=== PATIENT | male | born 1980 | race Caucasian/White ===

== ENCOUNTER 2023-11-30 15:32 | Emergency (ER) | payer OTHER ==
[~2023-11-30] VITALS: Ht 177.8 cm; Wt 79.0 kg
[2023-11-30] MEDS ORDERED: ONDANSETRON 4MG 2ML VIAL IV ONE (15:40)
[2023-11-30] MEDS ORDERED: NS 1,000 ML IV ONE (15:40)
[2023-11-30 16:15] LABS: BASO # 0.1 10^3/uL (0.0-0.2); BASO % 0.7 % (0.0-1.0); EOS # 0.2 10^3/uL (0.0-0.5); EOS % 2.1 % (0.0-3.0); HEMATOCRIT 40.5 % (42.0-52.0); HEMOGLOBIN 14.1 g/dl (13.5-17.5); LYMPH # 3.1 10^3/uL (1.5-5.0); LYMPH % 34.8 % (24.0-44.0); MEAN CORPUSCULAR HEMOGLOBIN 29.7 pg (27.0-33.0); MEAN CORPUSCULAR HGB CONC 34.8 g/dl (32.0-36.5); MEAN CORPUSCULAR VOLUME 85.3 fl (80.0-96.0); MONO # 0.9 10^3/uL (0.0-0.8); MONO % 9.6 % (2.0-8.0); NEUTROPHILS # 4.7 10^3/uL (1.5-8.5); NEUTROPHILS % 52.6 % (36.0-66.0); PLATELET COUNT, AUTOMATED 230 10^3/uL (150-450); RED BLOOD COUNT 4.75 10^6/uL (4.30-6.10); WHITE BLOOD COUNT 8.9 10^3/uL (4.0-10.0)
[2023-11-30 16:46] LABS: LIPASE 43 U/L (12-53)
[2023-11-30 16:48] LABS: ALBUMIN 3.5 G/DL (3.2-5.2); ALKALINE PHOSPHATASE 98 U/L (46-116); ALT/SGPT 12 U/L (7.0-40); AST/SGOT 17 U/L (<34); BILIRUBIN,DIRECT 0.2 MG/DL (<0.4); BILIRUBIN,TOTAL 0.5 MG/DL (0.3-1.2); BLOOD UREA NITROGEN 8 MG/DL (9-23); CALCIUM LEVEL 8.9 MG/DL (8.5-10.1); CARBON DIOXIDE LEVEL 27 MMOL/L (20-31); CHLORIDE LEVEL 106 MMOL/L (98-107); CREATININE FOR GFR 0.58 MG/DL (0.70-1.30); GLOMERULAR FILTRATION RATE > 60.0 (>60); GLUCOSE, FASTING 102 MG/DL (60-100); POTASSIUM SERUM 3.9 MMOL/L (3.5-5.1); SODIUM LEVEL 137 MMOL/L (136-145); TOTAL PROTEIN 6.3 G/DL (5.7-8.2)
[2023-11-30] MEDS ORDERED: BUPRENORPHINE/NALOXONE 2-0.5MG SUBLINGUAL TABLET(SUBOXONE) SL STA (16:57)
[2023-11-30 18:00] VITALS: BP 119/56
[2023-11-30 18:02] VITALS: O2SAT 96
[2023-11-30 18:28] VITALS: TEMP 97.8
== END 2023-11-30 18:32 | disposition home or self-care (01) ==
LOC: EDBD 15:32 → M ED 15:32
DX: F11.23 Opioid dependence with withdrawal (principal); R11.2 Nausea with vomiting, unspecified; R19.7 Diarrhea, unspecified; F32.9 Major depressive disorder, single episode, unspecified; F41.9 Anxiety disorder, unspecified; Z88.8 Allergy status to other drugs, medicaments and biological substances
CPT/HCPCS: 80048; 80076; 83690; 85025; 93005; 93041; 96361; 96374; 99285; J2405

== ENCOUNTER → 2023-12-04 | Outpatient (CLI) | payer OTHER ==
[2023-12-04 14:16] LABS: BASO % 0.5 % (0.0-1.0); EOS # 0.2 10^3/uL (0.0-0.5); EOS % 2.6 % (0.0-3.0); HEMOGLOBIN 14.4 g/dl (13.5-17.5); LYMPH # 2.7 10^3/uL (1.5-5.0); LYMPH % 35.1 % (24.0-44.0); MEAN CORPUSCULAR HEMOGLOBIN 29.6 pg (27.0-33.0); MEAN CORPUSCULAR HGB CONC 34.3 g/dl (32.0-36.5); MEAN CORPUSCULAR VOLUME 86.2 fl (80.0-96.0); MONO # 0.6 10^3/uL (0.0-0.8); MONO % 8.4 % (2.0-8.0); NEUTROPHILS % 53.1 % (36.0-66.0); PLATELET COUNT, AUTOMATED 214 10^3/uL (150-450); RED BLOOD COUNT 4.87 10^6/uL (4.30-6.10); WHITE BLOOD COUNT 7.6 10^3/uL (4.0-10.0)
[2023-12-04 14:33] LABS: HEMOGLOBIN A1c 5.1 % (4.0-6.0)
[2023-12-04 14:36] LABS: TOTAL IRON BINDING CAPACITY 345 UG/DL (250-425)
[2023-12-04 14:37] LABS: ALBUMIN 3.8 G/DL (3.2-5.2); ALKALINE PHOSPHATASE 92 U/L (46-116); ALT/SGPT 12 U/L (7.0-40); AST/SGOT 18 U/L (<34); BILIRUBIN,TOTAL 0.6 MG/DL (0.3-1.2); BLOOD UREA NITROGEN 7 MG/DL (9-23); CALCIUM LEVEL 8.8 MG/DL (8.5-10.1); CARBON DIOXIDE LEVEL 27 MMOL/L (20-31); CHLORIDE LEVEL 110 MMOL/L (98-107); CHOLESTEROL LEVEL 165 MG/DL (<200); CHOLESTEROL RISK RATIO 3.81 (<5); CREATININE FOR GFR 0.62 MG/DL (0.70-1.30); GLOMERULAR FILTRATION RATE > 60.0 (>60); GLUCOSE, FASTING 77 MG/DL (60-100); HDL CHOLESTEROL 43.2 MG/DL (>40); IRON (FE) 48 UG/DL (65-175); LDL CHOLESTEROL 109.2 MG/DL (<100); NON-HDL-C 121.8 MG/DL; PERCENT SATURATION 13.9 % (19.7-50.0); POTASSIUM SERUM 3.8 MMOL/L (3.5-5.1); SODIUM LEVEL 143 MMOL/L (136-145); TOTAL PROTEIN 6.5 G/DL (5.7-8.2); TRIGLYCERIDES LEVEL 63 MG/DL (<150)
[2023-12-04 14:40] LABS: THYROID STIMULATING HORMONE 2.337 uIU/ML (0.55-4.78)
[2023-12-04 14:41] LABS: FERRITIN 57.7 NG/ML (10.5-307.3); TOTAL 25(OH) VITAMIN D 22.6 NG/ML (20.0-100.0)
[2023-12-04 14:43] LABS: HEPATITIS B SURFACE ANTIBODY POSITIVE (POSITIVE)
[2023-12-04 14:44] LABS: VITAMIN B12 LEVEL 357 PG/ML (211-911)
[2023-12-04 15:06] LABS: HIV 1&2 SCREEN NEGATIVE (NEGATIVE)
[2023-12-04 15:40] LABS: HEPATITIS C VIRUS ABY INDEX > 11.00 INDEX (<0.8)
== END ==
LOC: M LAB 12:45
PROVIDERS: ATTEND Physician Assistant Medical
DX: B19.20 Unspecified viral hepatitis C without hepatic coma (principal)